=== PATIENT | female | born 1945 | race African-American/Black ===

== ENCOUNTER 2019-05-15 11:08 | Emergency (ER) | payer BC ==
[~2019-05-15] VITALS: Ht 170.2 cm; Wt 63.5 kg
[~2019-05-15 11:08] MED LIST: LISI1TAB; SIMV20TA2
[2019-05-15 11:12] VITALS: BP_SYST 158
[2019-05-15 12:20] VITALS: BP_SYST 164
== END 2019-05-15 12:20 | disposition home or self-care (01) ==
LOC: SED 11:08
DX: M17.11 Unilateral primary osteoarthritis, right knee (principal); I10 Essential (primary) hypertension; Z88.0 Allergy status to penicillin; Z79.899 Other long term (current) drug therapy
CPT/HCPCS: 73564; 99283